=== PATIENT | female | born 1940 | race African-American/Black ===

== ENCOUNTER 2019-06-06 09:43 | Outpatient (CLI) | payer MEDICARE, SELFPAY ==
[2019-06-06 10:27] LABS: Alanine Aminotransferase 21 U/L (4-35); Alkaline Phosphatase 94 U/L (38-126); Aspartate Amino Transferase 29 U/L (14-36); Bilirubin,Total 0.3 mg/dL (0.2-1.3); Blood Urea Nitrogen 14 mg/dL (7-17); Calcium 9.5 mg/dL (8.4-10.2); Carbon Dioxide 33 mmol/L (22-30); Chloride 103 mmol/L (98-107); Cholesterol 202 mg/dL (0-200); Estimated Glomerular Filt Rate > 60; Glucose 139 mg/dL (65-105); HDL Direct 49 mg/dL; Potassium 3.7 mmol/L (3.4-5.0); Sodium 139 mmol/L (137-145); Triglycerides 62 mg/dL (<150)
[2019-06-06 10:39] LABS: LDL Cholesterol Direct 109 mg/dL
[2019-06-06 10:50] LABS: Hemoglobin A1C 8.4 % (<5.7)
[2019-06-06 10:58] LABS: Thyroid Stimulating Hormone 0.354 uIU/mL (0.465-4.680)
== END 2019-06-06 09:44 | disposition home or self-care (01) ==
PROVIDERS: PCP Emergency Medicine; Visit Provider Emergency Medicine
DX: E03.9 Hypothyroidism, unspecified (principal); E11.9 Type 2 diabetes mellitus without complications; E78.5 Hyperlipidemia, unspecified
CPT/HCPCS: 36415; 80053; 80061; 83036; 84443

== ENCOUNTER 2019-08-28 09:35 | Outpatient (CLI) | payer MEDICARE, SELFPAY ==
[2019-08-28 10:36] LABS: Alanine Aminotransferase 20 U/L (4-35); Albumin Level 3.8 g/dL (3.5-5.1); Alkaline Phosphatase 78 U/L (38-126); Aspartate Amino Transferase 28 U/L (14-36); Bilirubin,Total 0.5 mg/dL (0.2-1.3); Blood Urea Nitrogen 12 mg/dL (7-17); Calcium 9.1 mg/dL (8.4-10.2); Carbon Dioxide 31 mmol/L (22-30); Chloride 104 mmol/L (98-107); Cholesterol 204 mg/dL (0-200); Estimated Glomerular Filt Rate > 60; Glucose 131 mg/dL (65-105); HDL Direct 53 mg/dL; Potassium 3.8 mmol/L (3.4-5.0); Sodium 138 mmol/L (137-145); Triglycerides 71 mg/dL (<150)
[2019-08-28 10:47] LABS: LDL Cholesterol Direct 100 mg/dL
[2019-08-28 11:07] LABS: Thyroid Stimulating Hormone 0.202 uIU/mL (0.465-4.680)
[2019-08-28 11:26] LABS: Hemoglobin A1C 7.4 % (<5.7)
== END 2019-08-28 09:36 | disposition home or self-care (01) ==
PROVIDERS: PCP Emergency Medicine; Visit Provider Emergency Medicine
DX: E78.5 Hyperlipidemia, unspecified (principal); E11.9 Type 2 diabetes mellitus without complications
CPT/HCPCS: 36415; 80053; 80061; 83036; 84443

== ENCOUNTER 2019-09-17 13:03 | Outpatient (CLI) | payer MEDICARE, SELFPAY ==
[2019-09-17 14:20] LABS: Thyroid Stimulating Hormone 0.047 uIU/mL (0.465-4.680)
== END 2019-09-17 13:04 | disposition home or self-care (01) ==
PROVIDERS: PCP Emergency Medicine; Visit Provider Emergency Medicine
DX: E11.65 Type 2 diabetes mellitus with hyperglycemia (principal); Z79.4 Long term (current) use of insulin
CPT/HCPCS: 36415; 84443

== ENCOUNTER 2019-10-08 13:18 | Outpatient (CLI) | payer MEDICARE, SELFPAY ==
--- NOTE | ~2019-10-08 | NM_ITS ---
EXAMINATION: NM thyroid scan w uptake DATE: 10/09/2019 13:34 INDICATION: Abnormal results of thyroid function tests. COMPARISON: Thyroid scintigraphy 07/03/2013 TECHNIQUE: 0.355 mCi I-123 was administered orally. Scintigraphic images of the thyroid gland were o btained at 24 hours. Thyroid uptake was calculated by the technologist. FINDINGS: The thyroid uptake is 46% (normal 10-30%), with the right lobe measuring 35% uptake and the left 12%. Right thyroid lobe is larger than the left. There is no focal area of decreased or increased activit y to suggest hypofunctioning or hyperfunctioning nodule. IMPRESSION: 1. Persistently increased 24-hour thyroid uptake, consistent with hyperthyroidism. 2. Unchanged increased size and activity in right thyroid lobe relative to the left. Reviewed, dictated and finalized at location A. IMPRESSION: 1. Persistently increased 24-hour thyroid uptake, consistent with hyperthyroid ism. 2. Unchanged increased size and activity in right thyroid lobe relative to the left.
[2019-10-08 14:31] LABS: Free T4 Free Thyroxine 0.84 ng/mL (0.78-2.19)
[2019-10-11 06:07] LABS: Triiodothyronine T3 Free 3.2 pg/mL (2.3-4.2)
[2019-10-12 12:51] LABS: Thyroid Stimulating Immunoglob <89 % baseline (<140)
== END 2019-10-08 13:19 | disposition home or self-care (01) ==
PROVIDERS: PCP Emergency Medicine; Visit Provider Physician Assistant
DX: R94.6 Abnormal results of thyroid function studies (principal)
CPT/HCPCS: 36415; 78014; 84439; 84443; 84445; 84481; A9516

== ENCOUNTER 2019-11-11 13:13 | Outpatient (CLI) | payer MEDICARE, SELFPAY ==
[2019-11-11 14:55] LABS: Free T4 Free Thyroxine 0.67 ng/mL (0.78-2.19)
[2019-11-14 12:53] LABS: Triiodothyronine T3 Free 2.9 pg/mL (2.3-4.2)
== END 2019-11-11 13:14 | disposition home or self-care (01) ==
LOC: ANHLAB 13:17
PROVIDERS: PCP Emergency Medicine; Visit Provider Physician Assistant
DX: E05.90 Thyrotoxicosis, unspecified without thyrotoxic crisis or storm (principal)
CPT/HCPCS: 36415; 84439; 84443; 84481

== ENCOUNTER 2019-12-25 09:53 | Outpatient (CLI) | payer MEDICARE, SELFPAY ==
[2019-12-25 10:46] LABS: Alanine Aminotransferase 23 U/L (4-35); Alkaline Phosphatase 81 U/L (38-126); Anion Gap 6 mmol/L (8-16); Aspartate Amino Transferase 31 U/L (14-36); Bilirubin,Total 0.5 mg/dL (0.2-1.3); Blood Urea Nitrogen 14 mg/dL (7-17); Calcium 9.5 mg/dL (8.4-10.2); Carbon Dioxide 33 mmol/L (22-30); Chloride 103 mmol/L (98-107); Cholesterol 225 mg/dL (0-200); Estimated Glomerular Filt Rate > 60; Glucose 128 mg/dL (65-105); HDL Direct 55 mg/dL; Potassium 4.1 mmol/L (3.4-5.0); Sodium 142 mmol/L (137-145); Triglycerides 88 mg/dL (<150)
[2019-12-25 10:56] LABS: LDL Cholesterol Direct 118 mg/dL
[2019-12-25 11:05] LABS: Creatinine Urine 131.6 mg/dL
[2019-12-25 11:15] LABS: Thyroid Stimulating Hormone 0.799 uIU/mL (0.465-4.680)
[2019-12-25 11:19] LABS: MALB Creatinine Ratio < 4.6 mg/g (0-30); Microalbumin Urine Random < 6.0 mg/L (0-16.7)
[2019-12-25 11:20] LABS: Free T4 Free Thyroxine 0.72 ng/mL (0.78-2.19)
== END 2019-12-25 09:54 | disposition home or self-care (01) ==
PROVIDERS: PCP Emergency Medicine; Referring Provider Physician Assistant; Visit Provider Emergency Medicine
DX: E05.90 Thyrotoxicosis, unspecified without thyrotoxic crisis or storm (principal); E11.65 Type 2 diabetes mellitus with hyperglycemia; Z51.81 Encounter for therapeutic drug level monitoring; Z79.4 Long term (current) use of insulin; E78.5 Hyperlipidemia, unspecified
CPT/HCPCS: 36415; 80053; 80061; 82043; 84439; 84443; 84481

== ENCOUNTER 2020-08-26 09:32 | Outpatient (CLI) | payer MEDICARE, SELFPAY ==
[2020-08-26 12:58] LABS: Free T4 Free Thyroxine 0.84 ng/mL (0.78-2.19)
[2020-08-26 13:15] LABS: Total Triiodothyronine (T3) 1.79 NG/ML (0.97-1.69)
[2020-08-29 03:05] LABS: Thyroid Peroxidase Antibodies <1 IU/mL (<9)
[2020-08-29 07:26] LABS: Thyrotropin Receptor Antibody <1.00 IU/L (<=2.00)
== END 2020-08-26 09:33 | disposition home or self-care (01) ==
LOC: ANHWCLAB 09:44
PROVIDERS: PCP Emergency Medicine; Visit Provider Internal Medicine Endocrinology, Diabetes & Metabolism
DX: E05.90 Thyrotoxicosis, unspecified without thyrotoxic crisis or storm (principal); I10 Essential (primary) hypertension
CPT/HCPCS: 36415; 83519; 84439; 84443; 84480; 86376

== ENCOUNTER 2021-01-20 10:01 | Outpatient (CLI) | payer MEDICARE, SELFPAY ==
[2021-01-20 13:06] LABS: Alanine Aminotransferase 21 U/L (4-35); Albumin Level 3.8 g/dL (3.5-5.1); Alkaline Phosphatase 85 U/L (38-126); Anion Gap 9 mmol/L (8-16); Aspartate Amino Transferase 30 U/L (14-36); Bilirubin,Total 0.5 mg/dL (0.2-1.3); Blood Urea Nitrogen 22 mg/dL (7-17); Calcium 9.4 mg/dL (8.4-10.2); Carbon Dioxide 29 mmol/L (22-30); Chloride 102 mmol/L (98-107); Cholesterol 238 mg/dL (0-200); Estimated Glomerular Filt Rate 58; Glucose 168 mg/dL (65-110); HDL Direct 68 mg/dL; Sodium 140 mmol/L (137-145); Triglycerides 75 mg/dL (<150)
[2021-01-20 13:17] LABS: LDL Cholesterol Direct 124 mg/dL
[2021-01-20 13:22] LABS: Vitamin D 25 Hydroxy 30.8 ng/mL
[2021-01-20 13:23] LABS: Creatinine Urine 139.8 mg/dL
[2021-01-20 13:27] LABS: MALB Creatinine Ratio 4.3 mg/g (0-30)
== END 2021-01-20 10:02 | disposition home or self-care (01) ==
PROVIDERS: PCP Emergency Medicine; Visit Provider Internal Medicine Endocrinology, Diabetes & Metabolism
DX: E11.65 Type 2 diabetes mellitus with hyperglycemia (principal); Z51.81 Encounter for therapeutic drug level monitoring; Z79.4 Long term (current) use of insulin; I10 Essential (primary) hypertension
CPT/HCPCS: 36415; 80053; 80061; 82043; 82306

== ENCOUNTER 2021-04-29 14:26 | Outpatient (CLI) | payer MEDICARE, SELFPAY ==
[2021-04-29 17:02] LABS: Free T4 Free Thyroxine 0.95 ng/mL (0.78-2.19); Vitamin D 25 Hydroxy 35.6 ng/mL
[2021-05-03 19:49] LABS: Triiodothyronine T3 Free 3.1 pg/mL (2.3-4.2)
== END 2021-04-29 14:27 | disposition home or self-care (01) ==
LOC: ANHWCLAB 14:30
PROVIDERS: PCP Emergency Medicine; Referring Provider Nurse Practitioner Family; Visit Provider Nurse Practitioner Family
DX: E03.9 Hypothyroidism, unspecified (principal); E11.9 Type 2 diabetes mellitus without complications; E55.9 Vitamin D deficiency, unspecified; Z78.0 Asymptomatic menopausal state
CPT/HCPCS: 36415; 82306; 82607; 84439; 84443; 84481

== ENCOUNTER 2021-10-28 09:18 | Outpatient (CLI) | payer MEDICARE, SELFPAY ==
[2021-10-28 09:59] LABS: Alanine Aminotransferase 21 U/L (6-35); Albumin Level 4.4 g/dL (3.5-5.1); Alkaline Phosphatase 91 U/L (38-126); Anion Gap 15 mmol/L (8-16); Aspartate Amino Transferase 27 U/L (14-36); Bilirubin,Total 0.5 mg/dL (0.2-1.3); Blood Urea Nitrogen 13 mg/dL (7-17); Calcium 9.4 mg/dL (8.4-10.2); Carbon Dioxide 29 mmol/L (22-30); Chloride 98 mmol/L (98-107); Cholesterol 260 mg/dL (0-200); Estimated Glomerular Filt Rate 57; Glucose 172 mg/dL (65-110); HDL Direct 66 mg/dL; Potassium 3.8 mmol/L (3.4-5.0); Sodium 142 mmol/L (137-145); Triglycerides 85 mg/dL (<150)
[2021-10-28 10:10] LABS: LDL Cholesterol Direct 128 mg/dL
[2021-10-28 10:32] LABS: Creatinine Urine 190.5 mg/dL
[2021-10-28 10:36] LABS: MALB Creatinine Ratio 6.8 mg/g (0-30); Microalbumin Urine Random 12.9 mg/L (0-16.7)
== END 2021-10-28 09:19 | disposition home or self-care (01) ==
LOC: ANHLAB 09:21
PROVIDERS: PCP Emergency Medicine; Visit Provider Emergency Medicine
DX: E11.9 Type 2 diabetes mellitus without complications (principal); E05.90 Thyrotoxicosis, unspecified without thyrotoxic crisis or storm; I10 Essential (primary) hypertension
CPT/HCPCS: 36415; 80053; 80061; 82043; 83036; 84443

== ENCOUNTER 2022-02-16 09:13 | Inpatient (IN) | payer MEDICARE, SELFPAY ==
[2022-02-16] VITALS (17 sets, daily range): BP systolic 126–156; BP diastolic 47–88; PULSE 61–118; RESP 11–21; TEMP 36.5; O2SAT 96–100; BMI 29.0
--- NOTE | ~2022-02-16 | XR_ITS ---
EXAMINATION: XR chest 2V DATE: 02/16/2022 09:45 INDICATION: Heart palpitations TECHNIQUE: AP and lateral views of the chest are obtained. COMPARISON: 06/17/2013 FINDINGS: The lungs are free of acute opacities. No pleural effusion or pneumothorax. The cardiomedia stinal silhouette is normal. There is moderate thoracic spondylosis. IMPRESSION: 1. No acute cardiopulmonary abnormality. Reviewed, dictated and finalized at location B. ERY CHECKER
--- NOTE | ~2022-02-16 | US_ITS ---
EXAMINATION: US venous doppler [facility] DATE: 02/16/2022 22:38 INDICATION: Elevated D-dimer , lower limb pain and swelling. TECHNIQUE: Grayscale images without and with compression and Doppler images of the bilateral lower ex tremity veins were obtained. COMPARISON: None FINDINGS: The right common femoral vein, profunda (deep) femoral vein, femoral vein, popliteal vein, peroneal v ein, posterior tibial veins, gastrocnemius vein, and greater saphenous vein are patent. The left common femoral vein, profunda femoral vein, femoral vein, popliteal vein, peroneal vein, pos terior tibial veins, gastrocnemius vein, and greater saphenous vein are patent. IMPRESSION: 1. Patent bilateral lower extremity veins. No evidence of deep venous thrombosis. Reviewed, dictated and finalized at location K. TAL MARKETER IMPRESSION: 1. Patent bilateral lower extremity veins. No evidence of deep venous thrombos is.
--- NOTE | ~2022-02-16 | CT_ITS ---
EXAMINATION: CTA chest PE protocol DATE: 02/16/2022 12:26 INDICATION: Tachypnea TECHNIQUE: Computed tomography angiography (CTA) of the chest was performed with 100 mL Omnipaque-350 intravenous contrast timed to evaluate the pulmonary arteries. Coronal maximum intensity projection 3D-reconstructions were created by the technologist. The dose-length product (DLP) was 364.61 mGy-cm. Automated exposure control and iterative reconstruction technique were employed. COMPARISON: None. FINDINGS: The pulmonary arteries are well-opacified. There are acute filling defects in segmental and subsegmental pulmonary arteries of the right lower lobe, right middle lobe, right upper lobe, and le ft lower lobe. There is mild dependent atelectasis. No pleural effusion or pneumothorax. No pathologi joanne enlarged thoracic lymph nodes are identified. The heart size is normal. There is a 1.7 cm nodul e of the right thyroid lobe. There is moderate thoracic spondylosis low-density masses of the adrenal glands are consistent with adenomas.. IMPRESSION: 1. Acute pulmonary emboli in the right lung and left lower lobe. These findings were discussed with Maynor Zuñiga MD in the Emergency Department at 1239 hours on 02/16/2022. 2. Right thyroid nodule. Nonemergent thyroid ultrasound is recommended for risk stratification. Reviewed, dictated and finalized at location B. RUMENTATION INSTRUCTOR IMPRESSION: 1. Acute pulmonary emboli in the right lung and left lower lobe. These findings were discussed with Dr. Kia Zuñiga MD in the Emergency Department at 12 39 hours on 02/16/2022. 2. Right thyroid nodule. Nonemergent thyroid ultrasound is recommended for risk stratification.
--- NOTE | 2022-02-16 09:22 | ECG_ITS ---
Measurements Intervals [place] Rate: 107 P: 40 MN: 132 QRS: -46 QRSD: 90 T: 64 QT: 330 QTc: 441 Interpretive Statements SINUS TACHYCARDIA INFERIOR MYOCARDIAL INFARCTION , PROBABLY OLD [40+ ms Q WAVE AND/OR ST/T ABNORMALITY IN II/aVF] NO PREVIOUS ECG AVAILABLE FOR COMPARISON Electronically Signed On 02-16-2022 13:22:57 [employer]OL BU[employer] by Ousmane Prasad M.D.
[2022-02-16 09:44] LABS: INR 1.1; Prothrombin Time 13.6 Seconds (11.1-14.7)
[2022-02-16 09:45] LABS: Basophils Percent Auto 0.3 % (0.2-1.2); Eosinophils Absolute Auto 0.1 K/mm3 (0-0.3); Hematocrit 45.4 % (37.0-47.0); Hemoglobin 15.6 g/dL (12.0-15.0); Immature Granulocyte Absolute 0.01 K/mm3 (0.00-0.031); Immature Granulocyte Percent A 0.2 % (0-0.5); Lymphocytes Absolute Auto 1.62 K/mm3 (0.9-3.2); Lymphocytes Percent Auto 26.1 % (18.3-44.2); Mean Corpuscular HGB Conc 34.4 g/dl (32-36); Mean Corpuscular Hemoglobin 29.6 pg (26-34); Mean Corpuscular Volume 86.1 fl (80-100); Mean Platelet Volume 9.9 fl (7.4-10.4); Monocytes Absolute Auto 0.6 K/mm3 (0.1-0.6); Monocytes Percent Auto 8.9 % (2.6-8.5); Neutrophils Absolute Auto 3.9 K/mm3 (1.3-6.7); Neutrophils Percent Auto 63.5 % (45.5-73.1); Partial Thromboplastin Time 22.1 SECONDS (22.3-36.8); Platelet Count Result 259 k/mm3 (150-375); Red Blood Count 5.27 M/mm3 (4.2-5.4); Red Cell Distribution Width 12.4 % (11.5-14.5); White Blood Count 6.2 K/mm3 (4.5-10.0)
[2022-02-16 09:46] LABS: Alanine Aminotransferase 24 U/L (6-35); Albumin Level 4.3 g/dL (3.5-5.1); Alkaline Phosphatase 104 U/L (38-126); Anion Gap 11 mmol/L (8-16); Aspartate Amino Transferase 29 U/L (14-36); Bilirubin,Total 0.7 mg/dL (0.2-1.3); Blood Urea Nitrogen 19 mg/dL (7-17); Carbon Dioxide 27 mmol/L (22-30); Chloride 100 mmol/L (98-107); Estimated CRCL calculation 38 ml/min; Estimated Glomerular Filt Rate 57; Glucose 260 mg/dL (65-110); Lipase 93 U/L (23-300); Potassium 3.2 mmol/L (3.4-5.0); Sodium 138 mmol/L (137-145)
[2022-02-16 09:58] LABS: Troponin I < 0.012 ng/mL (0.000-0.034)
--- NOTE | 2022-02-16 10:21 | ED.ARRPALP ---
HPI - Arrhythmia/Palpitations General Chief Complaint: Arrhythmia/Palpitations Stated Complaint: dizzy and heart palpitations Time Seen by Provider: 02/16/22 09:23 Source: patient, RN notes reviewed and old records reviewed Mode of arrival: ambulatory Limitations: no limitations History of Present Illness HPI narrative: This is an 82 year old female who presents for evaluation of heart racing. PAtient states last night she had some dizziness, and this morning her dizziness seemed worse. She describes her dizziness as feeling off balance, and she thinks it occurs when she stands up. She also reports she woke up from her sleep at 3 am with feeling that her heart was racing. She reports associated thumping in her chest and this lasted until she got to ER. She reports feeling of gas in her left lower chest and upper abdomen. She denies dizziness now. She denies fever, cough, sob, nausea, vomiting or diarrhea. She denies history of arrhythmia. Related Data Home Medications Medication Instructions Recorded Confirmed cetirizine 10 mg capsule (Zyrtec) 10 mg PO DAILY PRN Allergy Symptoms 05/29/20 02/16/22 cholecalciferol (vitamin D3) 50 50 mcg PO DAILY 02/16/22 02/16/22 mcg (2,000 unit) capsule lisinopril 20 1 tablet PO BID 02/16/22 02/16/22 mg-hydrochlorothiazide 12.5 mg tablet Allergies Allergy/AdvReac Type Severity Reaction Status Date / Time No Known Allergies Allergy Verified 01/26/22 14:32 Review of Systems Constitutional: Constitutional: Denies weakness Cardiovascular: Cardiovascular: Denies syncope, Reports rapid heart rate, Denies irregular heart rhythm, Reports leg edema and Denies dyspnea Respiratory: Respiratory: Denies chest congestion, Denies hemoptysis, Denies excessive phlegm production and Denies dyspnea Gastrointestinal: Gastrointestinal: Denies abdominal pain, Denies hematochezia, Denies diarrhea and Denies vomiting Genitourinary: Genitourinary: Denies hematuria and Denies dysuria Musculoskeletal: Musculoskeletal: Denies joint swelling, Denies loss of height and Denies muscle weakness Neurologic: Denies syncope, Denies focal weakness and Denies weakness PMFSH Past Medical History Medical History Body mass index [BMI] 25.0-25.9, adult (04/21/15) Body mass index [BMI] 26.0-26.9, adult (08/15/16) Body mass index [BMI] 27.0-27.9, adult (11/17/16) Body mass index [BMI] 28.0-28.9, adult (10/11/17) Body mass index [BMI] 29.0-29.9, adult (05/28/18) Chronic pain of both knees Chronic right shoulder pain Gastro-esophageal reflux disease without esophagitis 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 Major depressive disorder, single episode, unspecified Nontoxic goiter, unspecified Other chronic pain Pain in left knee Primary osteoarthritis of both knees Vitamin D deficiency Surgical History Surgical History H/O cataract extraction S/P ORIF (open reduction internal fixation) fracture left forearm plate Family History Family History Mother Family history of blood dyscrasia Family history of anemia Family history of arthritis Diabetes mellitus, Onset Age: 83 Family history of malignant neoplasm, Onset Age: 83 Father Family history of lung disease Family history of lung cancer, Onset Age: 70 Sibling Family history of diabetes mellitus in first degree relative Social History Social History (Updated 02/16/22 @ 17:42 by Cuca Campbell NP) Social History: The patient has no children and is single. She is Retired from [employer]. She does not have a durable power staff attorney for healthcare. Code status full code Smoking packs per day: 5 Smoking cigarettes per day: 100.0 Years smoked: 15 Smoking pack-years: 75.00 Smoking status: Former smoker Tobacco type: cigarettes Seco
[2022-02-16] MEDS: ASPIRIN 81 MG CHEWABLE TABLET 324 MG PO (10:36)
[2022-02-16] MEDS: POTASSIUM CHLORIDE 20 MEQ TABLET 40 MEQ PO (10:37)
[2022-02-16] MEDS: SODIUM CHLORIDE 0.9% IV 1,000 ML 999 ML IV CONT (10:37)
--- NOTE | 2022-02-16 11:10 | PC.NURSE ---
Patient report given to MARIA ALEJANDRA Vaughn. All questions answered and care of patient transferred.
[2022-02-16 11:43] LABS: Influenza A QL RT-PCR Negative (Negative); Influenza B QL RT-PCR Negative (Negative); SARS-CoV-2 RNA PCR Negative
[2022-02-16 12:00] LABS: Magnesium 1.8 mg/dL (1.6-2.3)
[2022-02-16 12:01] LABS: D Dimer 3.06 ug/mL (<0.48)
[2022-02-16] MEDS: ENOXAPARIN 100 MG/ML SYRINGE 85 MG SUB-Q ×2 (13:09→20:55)
[2022-02-16 13:23] LABS: Troponin I < 0.012 ng/mL (0.000-0.034)
--- NOTE | 2022-02-16 13:37 | PM.IMHP ---
H&P: HPI History of Present Illness Date/Time: 02/16/22 13:37 Chief Complaint: Arrhythmia-palpitation Narrative: This is an 82-year-old female patient who has no prior history of having a PE. She has not had any recent travel. She has not had any recent surgery or injury. She lives a sedentary lifestyle. She was brought in for evaluation of heart racing. Last night she had some dizziness. However this morning her dizziness got worse. She felt like she was off balance when she stands up. She woke up around 3:00 a.m. feeling her heart race. She denied any fever chills no nausea vomiting or diarrhea. She has no prior history of any arrhythmia. She does live home alone. EKG was read as sinus tachycardia. Her D-dimer was 3.06. Potassium was 3.2. Her Accu-Chek was 254. The patient had been eating lunch while I was talking to her. Her last A1c was 8.0 on 10/28/2021. Both troponins were nonreactive. Influenza A/B and COVID are all negative. CTA was read as the followin. Acute pulmonary emboli in the right lung and left lower lobe. These findings were discussed with Dr. Kia Zuñiga MD in the Emergency Department at 1239 hours on 02/16/2022.? 2. Right thyroid nodule. Nonemergent thyroid ultrasound is recommended for risk stratification. The patient is being admitted to observation status on 02/16/2022. Review of Systems Review of Systems: See HPI All systems reviewed & are unremarkable except as noted in HPI and below Constitutional: Constitutional: Reports as per HPI and Reports no additional constitutional complaints Eyes: Eyes: Reports as per HPI and Reports no additional eye complaints ENT: Reports system reviewed and no additional complaints, except as documented and Reports Normal hearing present Cardiovascular: Cardiovascular: Reports no additional cardiovascular complaints Respiratory: Respiratory: Reports no additional respiratory complaints and Reports no additional respiratory complaints Gastrointestinal: Gastrointestinal: Reports as per HPI and Reports no additional gastrointestinal complaints Musculoskeletal: Musculoskeletal: Reports no additional musculoskeletal complaints Integumentary/Breasts: Skin/Breast: Reports system reviewed and no additional complaints, except as docu and Reports as per HPI Neurologic: Reports system reviewed and no additional complaints, except as documented, Reports as per HPI and Reports Normal hearing present Psychiatric: Psychiatric: Reports no additional psychiatric complaints and Reports as per HPI Endocrine: Endocrine: Reports no additional endocrine complaints Hematologic/Lymphatic: Hematologic/Lymphatic: Reports no additional hematologic/lymphatic complaints Allergic/Immunologic: Allergic/Immunologic: Reports no additional allergic/immunologic complaints [facility] Past Medical History Medical History Body mass index [BMI] 25.0-25.9, adult (04/21/15) Body mass index [BMI] 26.0-26.9, adult (08/15/16) Body mass index [BMI] 27.0-27.9, adult (11/17/16) Body mass index [BMI] 28.0-28.9, adult (10/11/17) Body mass index [BMI] 29.0-29.9, adult (05/28/18) Chronic pain of both knees Chronic right shoulder pain Gastro-esophageal reflux disease without esophagitis 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
--- NOTE | 2022-02-16 14:43 | PC.NURSE ---
This patient, Camila Valadez, was admitted to [facility] Room 322-01. Patient/family oriented to hospital policies and general routines including ID bracelet, bed and alarms, visiting hours, pain management, procedures, bathroom and other care routines, personal items, smoking policy, room service/diet, and visiting hours. Information on how to activate the Rapid Response Team has been discussed. Patient/Family are encouraged to report perceived risks to care and to ask questions if they do not understand what they are told or what they should do.
[2022-02-16 16:11] LABS: Troponin I < 0.012 ng/mL (0.000-0.034)
[2022-02-16 16:52] LABS: Glucose Point of Care 254 mg/dl (65-105)
[2022-02-16] MEDS: INSULIN HUMAN NPH (*BKC) 100 UNITS/ML 8 UNITS SUB-Q (18:12)
[2022-02-16] MEDS: lisinopriL 20 MG TABLET PO (20:52)
[2022-02-16] MEDS: hydroCHLOROthiazide 12.5 MG CAPSULE PO (20:52)
[2022-02-16 21:24] LABS: Glucose Point of Care 177 mg/dl (65-105)
[2022-02-17] VITALS (10 sets, daily range): BP systolic 125–137; BP diastolic 58–63; PULSE 53–94; RESP 18–20; TEMP 36.2–36.7; O2SAT 99–100
--- NOTE | 2022-02-17 | ECHO_ITS ---
Patient Info Name: Camila Valadez Age: 82 years : 1940 Gender: Female Ht: 67 in Wt: 184 lbs BSA: 2.01 m2 HR: 64 bpm BP: 127 / 58 mmHg Heart Rhythm: Sinus Rhythm Technical Quality: Good Exam Date: 02/17/2022 11:57 AM Exam Location: [facility] Patient Status: Inpatient Admit Date: 02/16/2022 Staff Ordering Physician: Cuca Campbell NP Burn Crew Member: Ailyn Renteria RDCS Attending Provider: Jamey Eagle MD Referring Physician: Adrian ESPANA; Exam Type: CA echo doppler color flow Study Info Indications - PULMONARY EMBOLISM Complete two-dimensional, color flow and Doppler transthoracic echocardiogram is performed. Summary 1. Complete two-dimensional, color flow and Doppler transthoracic echocardiogram is performed. 2. Left ventricular chamber dimension is normal. 3. Left ventricular systolic function is normal, estimated at 65-70%. 4. There is mildly increased left ventricular wall thickness. 5. The left ventricular diastolic function is grade I diastolic dysfunction. 6. Global longitudinal strain is normal at -18 %. 7. Right ventricular chamber dimension is mildly enlarged. 8. Right ventricular systolic function is lower limits of normal. TAPSE 1.8. 9. There is no aortic valve stenosis. 10. There is trace mitral valve regurgitation. 11. There is trace tricuspid valve regurgitation. 12. Mild pulmonary hypertension, estimated pulmonary arterial systolic pressure is 37 mmHg. Left Ventricle Left ventricular chamber dimension is normal. Left ventricular systolic function is normal, estimated at 65-70%. There is mildly increased left ventricular wall thickness. The left ventricular diastolic function is grade I diastolic dysfunction. Global longitudinal strain is normal at -18 %. Right Ventricle Right ventricular chamber dimension is mildly enlarged. Right ventricular systolic function is lower limits of normal. TAPSE 1.8. Left Atria Left atrial chamber dimension is normal. Right Atria Right atrial chamber dimension is normal. Aortic Valve The aortic valve is trileaflet. There is mild aortic valve sclerosis. There is no aortic valve stenosis. There is trace aortic valve regurgitation. Pulmonic Valve The pulmonic valve is not well visualized. Mitral Valve The mitral valve has thickened leaflets. There is trace mitral valve regurgitation. The mitral valve annulus is mildly calcified. Tricuspid Valve The tricuspid valve leaflets are normal. There is trace tricuspid valve regurgitation. Mild pulmonary hypertension, estimated pulmonary arterial systolic pressure is 37 mmHg. No tricuspid valve vegetation visualized. Pericardium/Pleural The pericardium appears normal. There is small pericardial effusion. Inferior Vena Cava Normal inferior vena cava with >50% collapse upon inspiration consistent with normal right atrial pressure, 5 mmHg. Aorta The aortic root size at the sinus of Valsalva is normal. The prox ascending aorta size is normal. There is mild aortic atherosclerosis. Left Ventricular Outflow Tract Name Value Normal LVOT 2D LVOT Diameter 2.0 cm LVOT Doppler
[2022-02-17 06:43] LABS: Basophils Percent Auto 0.5 % (0.2-1.2); Eosinophils Absolute Auto 0.1 K/mm3 (0-0.3); Eosinophils Percent Auto 3.4 % (0-4.4); Hematocrit 42.2 % (37.0-47.0); Lymphocytes Absolute Auto 2.01 K/mm3 (0.9-3.2); Lymphocytes Percent Auto 48.8 % (18.3-44.2); Mean Corpuscular HGB Conc 33.2 g/dl (32-36); Mean Corpuscular Hemoglobin 29.7 pg (26-34); Mean Corpuscular Volume 89.4 fl (80-100); Mean Platelet Volume 9.7 fl (7.4-10.4); Monocytes Absolute Auto 0.4 K/mm3 (0.1-0.6); Monocytes Percent Auto 10.2 % (2.6-8.5); Neutrophils Absolute Auto 1.5 K/mm3 (1.3-6.7); Neutrophils Percent Auto 37.1 % (45.5-73.1); Platelet Count Result 208 k/mm3 (150-375); Red Blood Count 4.72 M/mm3 (4.2-5.4); Red Cell Distribution Width 12.5 % (11.5-14.5); White Blood Count 4.1 K/mm3 (4.5-10.0)
[2022-02-17 06:52] LABS: Alanine Aminotransferase 20 U/L (6-35); Albumin Level 3.5 g/dL (3.5-5.1); Alkaline Phosphatase 83 U/L (38-126); Anion Gap 7 mmol/L (8-16); Aspartate Amino Transferase 25 U/L (14-36); Bilirubin,Total 0.6 mg/dL (0.2-1.3); Blood Urea Nitrogen 15 mg/dL (7-17); Calcium 8.4 mg/dL (8.4-10.2); Carbon Dioxide 27 mmol/L (22-30); Chloride 105 mmol/L (98-107); Estimated CRCL calculation 41 ml/min; Estimated Glomerular Filt Rate > 60; Glucose 153 mg/dL (65-110); Magnesium 2.1 mg/dL (1.6-2.3); Potassium 3.5 mmol/L (3.4-5.0); Sodium 139 mmol/L (137-145)
[2022-02-17 07:36] LABS: Thyroid Stimulating Hormone Reflex 0.068 uIU/mL (0.465-4.68)
[2022-02-17 08:05] LABS: Glucose Point of Care 156 mg/dl (65-105)
[2022-02-17 09:04] LABS: Free T4 Free Thyroxine Reflex 1.55 ng/dL (0.78-2.19)
[2022-02-17] MEDS: CHOLECALCIFEROL 1,000 UNITS TABLET 2000 UNITS PO (09:30)
[2022-02-17] MEDS: lisinopriL 20 MG TABLET PO ×2 (09:30→23:48)
[2022-02-17] MEDS: POTASSIUM CHLORIDE 10 MEQ TABLET.ER BY MOUTH ×2 (09:30→17:42)
[2022-02-17] MEDS: ENOXAPARIN 100 MG/ML SYRINGE 85 MG SUB-Q (09:30)
[2022-02-17] MEDS: methiMAzole 5 MG TAB BY MOUTH (09:30)
[2022-02-17] MEDS: hydroCHLOROthiazide 12.5 MG CAPSULE PO ×2 (09:30→23:48)
[2022-02-17 10:32] LABS: Total Triiodothyronine (T3) 1.41 NG/ML (0.97-1.69)
[2022-02-17 12:00] LABS: Glucose Point of Care 234 mg/dl (65-105)
--- NOTE | 2022-02-17 13:07 | P.PNIM_ITS ---
Progress Note: A&P Assessment and Plan (1) Pulmonary emboli: Code(s): I26.99 - Other pulmonary embolism without acute cor pulmonale Status: Acute Assessment and Plan: -the patient is on subcu Lovenox today. -may consider transitioning to Xarelto or Eliquis tomorrow depending on what her insurance will cover. -the patient is not in any distress and is on room air. -check venous Dopplers -an echo has been ordered as well --the patient has a sedentary lifestyle. -she has not had any recent injuries or surgeries or travel.. (2) Hyperthyroidism: Code(s): E05.90 - Thyrotoxicosis, unspecified without thyrotoxic crisis or storm Status: Acute Assessment and Plan: -as the patient about her Tapazole and she stated that her doctor was supposed to reorder her this medication but she has not received it. -I will check her thyroid level. (3) Type 2 diabetes mellitus with hyperglycemia, with long-term current use of insulin: Code(s): E11.65 - Type 2 diabetes mellitus with hyperglycemia; Z79.4 - academic program specialist (current) use of insulin Status: Acute Assessment and Plan: -sliding scale insulin with Accu-Cheks AC and HS and hypoglycemic protocol -her A1c was 8.0 on 10/28/2021. Hold NPH while on sliding scale and (4) HTN (hypertension): Qualifiers: Hypertension type: essential hypertension Qualified Code(s): I10 - Essential (primary) hypertension Code(s): I10 - Essential (primary) hypertension Status: Acute Assessment and Plan: -p.r.n. hydralazine with parameters -the patient is on lisinopril with hydrochlorothiazide at home and it is non formulary here. Perhaps we can just give however the lisinopril. -will need to continue with her supplemental potassium as her potassium was slightly low. Subjective Date/time seen: 02/17/22 13:07 No complaints Exam Const: General: cooperative, healthy appearing, comfortable, no acute distress, well developed, awake, Physically active, average body habitus and well nourished Nutritional Appearance: average body habitus and well nourished Orientation/consciousness: oriented to person, oriented to place, oriented to time and patient oriented x3 Limitations: no limitations HENMT: Head: normal to inspection, No palpable skull fracture present, normocephalic and atraumatic Ears: hearing grossly normal bilaterally and external ears normal Face/Nose/Sinus: Normal external nose present and Normal nares present Eyes: General: appearance normal, both eyes and all related structures Alignment and Position: alignment normal Periorbital: periorbital findings normal Eyelids: eyelids normal Sclera: sclerae normal Pupils: Equal, round and reactive pupils present EOM: EOMs intact bilaterally Neck: Neck: normal visual inspection, full ROM, no lymphadenopathy, trachea midline and supple Chest: Chest palpation & inspection: normal inspection of the chest Resp: Effort & Inspection: normal respiratory effort Auscultation: clear to auscultation bilaterally Cardio: Palpation: normal PMI Rate: regular rate Rhythm: regular rhythm Heart sounds: S1 normal heart sound present and S2 normal heart sound present Peripheral pulses: Peripheral pulses 2+ throughout GI: Inspection: normal to inspection Auscultation: normal bowel sounds Rectal Exam: deferred : General: Yes no CVA tenderness Back/Spine/Pelvis: Back: no CVA tenderness Cervical Spine: cervical ROM normal Thoracic/Lumbar Spine: thoracic and lumbar spine normal to i
[2022-02-17 16:53] LABS: Glucose Point of Care 176 mg/dl (65-105)
[2022-02-17] MEDS: INSULIN HUMAN NPH (*BKC) 100 UNITS/ML 8 UNITS SUB-Q (17:43)
[2022-02-17] MEDS: APIXABAN 5 MG TABLET 10 MG PO (23:48)
[2022-02-18] VITALS (11 sets, daily range): BP systolic 129–142; BP diastolic 56–67; PULSE 54–82; RESP 14–20; TEMP 36.5–36.8; O2SAT 98–100
[2022-02-18 07:46] LABS: Glucose Point of Care 176 mg/dl (65-105)
[2022-02-18] MEDS: CHOLECALCIFEROL 1,000 UNITS TABLET 2000 UNITS PO (08:08)
[2022-02-18] MEDS: methiMAzole 5 MG TAB BY MOUTH (08:08)
[2022-02-18] MEDS: hydroCHLOROthiazide 12.5 MG CAPSULE PO ×2 (08:08→20:50)
[2022-02-18] MEDS: lisinopriL 20 MG TABLET PO ×2 (08:08→20:50)
[2022-02-18] MEDS: APIXABAN 5 MG TABLET 10 MG PO ×2 (08:08→20:50)
[2022-02-18] MEDS: POTASSIUM CHLORIDE 10 MEQ TABLET.ER BY MOUTH ×2 (08:09→17:07)
[2022-02-18 11:58] LABS: Glucose Point of Care 177 mg/dl (65-105)
--- NOTE | 2022-02-18 12:19 | WPDNEURCNPN ---
Consult date: 02/18/22 HPI: Camila Valadez is a 82 year old female admitted to the hospital through the emergency room for the complaints of palpitation with dizziness in the emergency room patient reported that she had dizziness night before which was gradually getting worse and she explained it was a sensation of off balance and occurs when she stands up she did complain of associated thumping in her chest which lasted up until she came to the emergency room she gave no history of any other associated symptomatology. Her home medication included only lisinopril 20 mg twice a day vitamin D3 and cetirizine 10 mg daily, is not allergic to any medication, she has history of 75 smoking pack years with 15 years smoked but former smoker and not alcohol intake initial examination in the emergency room was normal vital signs were normal with blood pressure 155/59 routine labs were normal with glucose of 260 and GFR of 57 testing for influenza AB and stars negative chest x-ray negative but CTA of the chest documented acute pulmonary emboli in the right lung and left lower lobe in addition to right thyroid nodule EKG was without atrial fibrillation and echocardiogram reveals only trace mitral valve regurgitation and tricuspid valve regurgitation and pulmonary hypertension, patient has already been started on apixaban 15 mg q.12 hours. 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 Major depressive disorder, single episode, unspecified Nontoxic goiter, unspecified Other chronic pain Pain in left knee Primary osteoarthritis of both knees Vitamin D deficiency Surgical History Surgical History H/O cataract extraction S/P ORIF (open reduction internal fixation) fracture left forearm plate Family History Family History Mother Family history of blood dyscrasia Family history of anemia Family history of arthritis Diabetes mellitus, Onset Age: 83 Family history of malignant neoplasm, Onset Age: 83 Father Family history of lung disease Family history of lung cancer, Onset Age: 70 Sibling Family history of diabetes mellitus in first degree relative Social History Social History (Updated 02/16/22 @ 17:42 by Cuca Campbell NP) Social History: The patient has no children and is single. She is Retired from [employer]. She does not have a durable power corporate associate attorney for healthcare. Code status full code Smoking packs per day: 5 Smoking cigarettes per day: 100.0 Years smoked: 15 Smoking pack-years: 75.00 Smoking status: Former smoker Tobacco type: cigarettes Second hand tobacco smoke exposure: Yes Alcohol intake: never Substance use: never Substance use type: does not use Lack of Transportation: No Lack of Food: Never True Current Housing: I Have Housing Concerned About Future Housing: No Difficulty Paying Gas/Electric Bills: No Difficulty Paying for Meds: No Currently Unemployed: No Education: High School Diploma/GED Difficulty w/ Childcare or Family Care: No Spiritual care concerns: No Meds Home Medications and Allergies Home Medications Medication Instructions Recorded Confirmed Type cetirizine 10 mg capsule (Zyrtec) 10 mg PO DAILY PRN Allergy Symptoms 05/29/20 02/16/22 History insulin NPH isoph U-100 human 100 See Rx Instructions subcut DAILY 03/23/21 02/16/22 Rx unit/mL subcutaneous suspension 90 days #20
--- NOTE | 2022-02-18 13:31 | PM.IMPN ---
Progress Note: A&P Assessment and Plan (1) Pulmonary emboli: Code(s): I26.99 - Other pulmonary embolism without acute cor pulmonale Status: Acute Assessment and Plan: -the patient is on subcu Lovenox today. -may consider transitioning to Xarelto or Eliquis tomorrow depending on what her insurance will cover. -the patient is not in any distress and is on room air. -check venous Dopplers -an echo has been ordered as well --the patient has a sedentary lifestyle. -she has not had any recent injuries or surgeries or travel.. (2) Hyperthyroidism: Code(s): E05.90 - Thyrotoxicosis, unspecified without thyrotoxic crisis or storm Status: Acute Assessment and Plan: -as the patient about her Tapazole and she stated that her doctor was supposed to reorder her this medication but she has not received it. -I will check her thyroid level. 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 Hold NPH while on sliding scale and (4) HTN (hypertension): Qualifiers: Hypertension type: essential hypertension Qualified Code(s): I10 - Essential (primary) hypertension Code(s): I10 - Essential (primary) hypertension Status: Acute Assessment and Plan: -p.r.n. hydralazine with parameters -the patient is on lisinopril with hydrochlorothiazide at home and it is non formulary here. Perhaps we can just give however the lisinopril. -will need to continue with her supplemental potassium as her potassium was slightly low. Subjective Date/time seen: 02/18/22 13:31 Doing well Exam Const: General: cooperative, healthy appearing, comfortable, no acute distress, well developed, awake, Physically active, average body habitus and well nourished Nutritional Appearance: average body habitus and well nourished Orientation/consciousness: oriented to person, oriented to place, oriented to time and patient oriented x3 Limitations: no limitations HENMT: Head: normal to inspection, No palpable skull fracture present, normocephalic and atraumatic Ears: hearing grossly normal bilaterally and external ears normal Face/Nose/Sinus: Normal external nose present and Normal nares present Eyes: General: appearance normal, both eyes and all related structures Alignment and Position: alignment normal Periorbital: periorbital findings normal Eyelids: eyelids normal Sclera: sclerae normal Pupils: Equal, round and reactive pupils present EOM: EOMs intact bilaterally Neck: Neck: normal visual inspection, full ROM, no lymphadenopathy, trachea midline and supple Chest: Chest palpation & inspection: normal inspection of the chest Resp: Effort & Inspection: normal respiratory effort Auscultation: clear to auscultation bilaterally Cardio: Palpation: normal PMI Rate: regular rate Rhythm: regular rhythm Heart sounds: S1 normal heart sound present and S2 normal heart sound present Peripheral pulses: Peripheral pulses 2+ throughout GI: Inspection: normal to inspection Auscultation: normal bowel sounds Rectal Exam: deferred : General: Yes no CVA tenderness Back/Spine/Pelvis: Back: no CVA tenderness Cervical Spine: cervical ROM normal Thoracic/Lumbar Spine: thoracic and lumbar spine normal to inspection Pelvis: no pain with anterior-posterior compression Skin: General skin exam: normal color Lesions: no lesions Rashes: no rashes Trauma: no lacerations or abrasions Wounds: no wounds Hair: normal Nails: normal Neuro: General: oriented to person, oriented to place, oriented to time and patient oriented x3 Cranial nerves: Yes Equal, round and reactive pupils present and Yes Normal hearing present Cognition (Neuro)
--- NOTE | 2022-02-18 14:23 | WPDNEURCNPN ---
Assessment and Plan Assessment and plan (1) Orthostatic dizziness: Code(s): R42 - Dizziness and giddiness Status: Acute (2) Autonomic neuropathy: Code(s): G90.9 - Disorder of the autonomic nervous system, unspecified Status: Acute Plan 1 acute pulmonary emboli in the right lung and left lower lobe by CTA of the chest 2. Complaints of orthostatic dizziness once the general condition is stable we evaluate her for neuropathy secondary to underlying diabetes mellitus with autonomic involvement that is neuropathy Consult date: 02/18/22 HPI: Camila Valadez is a 82 year old female [facility] Past Medical History Medical History Body mass index [BMI] 25.0-25.9, adult (04/21/15) Body mass index [BMI] 26.0-26.9, adult (08/15/16) Body mass index [BMI] 27.0-27.9, adult (11/17/16) Body mass index [BMI] 28.0-28.9, adult (10/11/17) Body mass index [BMI] 29.0-29.9, adult (05/28/18) Chronic pain of both knees Chronic right shoulder pain Gastro-esophageal reflux disease without esophagitis HTN (hypertension) vermin exterminator (current) use of insulin Major depressive disorder, single episode, unspecified Nontoxic goiter, unspecified Other chronic pain Pain in left knee Primary osteoarthritis of both knees Vitamin D deficiency Surgical History Surgical History H/O cataract extraction S/P ORIF (open reduction internal fixation) fracture left forearm plate Family History Family History Mother Family history of blood dyscrasia Family history of anemia Family history of arthritis Diabetes mellitus, Onset Age: 83 Family history of malignant neoplasm, Onset Age: 83 Father Family history of lung disease Family history of lung cancer, Onset Age: 70 Sibling Family history of diabetes mellitus in first degree relative Social History Social History (Updated 02/16/22 @ 17:42 by Cuca Campbell NP) Social History: The patient has no children and is single. She is Retired from [employer]. She does not have a durable power collections attorney for healthcare. Code status full code Smoking packs per day: 5 Smoking cigarettes per day: 100.0 Years smoked: 15 Smoking pack-years: 75.00 Smoking status: Former smoker Tobacco type: cigarettes Second hand tobacco smoke exposure: Yes Alcohol intake: never Substance use: never Substance use type: does not use Lack of Transportation: No Lack of Food: Never True Current Housing: I Have Housing Concerned About Future Housing: No Difficulty Paying Gas/Electric Bills: No Difficulty Paying for Meds: No Currently Unemployed: No Education: High School Diploma/GED Difficulty w/ Childcare or Family Care: No Spiritual care concerns: No Meds Home Medications and Allergies Home Medications Medication Instructions Recorded Confirmed Type cetirizine 10 mg capsule (Zyrtec) 10 mg PO DAILY PRN Allergy Symptoms 05/29/20 02/16/22 History insulin NPH isoph U-100 human 100 See Rx Instructions subcut DAILY 03/23/21 02/16/22 Rx unit/mL subcutaneous suspension 90 days #20 mL (Humulin N NPH U-100 Insulin (isophane susp)) methimazole 5 mg tablet See Rx Instructions .Route 09/21/21 02/16/22 Rx .COMPLEX #90 tabs potassium chloride 10 mEq See Rx Instructions .Route 12/17/21 02/16/22 Rx tablet,extended release .COMPLEX #180 tabs cholecalciferol (vitamin D3) 50 50 mcg PO DAILY 02/16/22 02/16/22 History mcg (2,000 unit) capsule lisinopril 20 1 tablet PO BID 02/16/22 02/16/22 History mg-hydrochlorothiazide 12.5 mg tablet Allergies Allergy/AdvReac Type Severity Reaction Status Date / Time No Known Allergies Allergy Verified 01/26/22 14:32 Vital Signs Vital Signs - 24 hr 02/17/22 16:00 02/17/22 20:00 02/17/22 22:00 Temperature 36.6
[2022-02-18] MEDS: INSULIN HUMAN NPH (*BKC) 100 UNITS/ML 8 UNITS SUB-Q (17:07)
[2022-02-18 17:10] LABS: Glucose Point of Care 243 mg/dl (65-105)
[2022-02-18 22:12] LABS: Glucose Point of Care 341 mg/dl (65-105)
[2022-02-19] VITALS (10 sets, daily range): BP systolic 120–150; BP diastolic 56–67; PULSE 56–86; RESP 18–22; TEMP 36.5–36.6; O2SAT 97–99
[2022-02-19 08:11] LABS: Glucose Point of Care 161 mg/dl (65-105)
[2022-02-19] MEDS: CHOLECALCIFEROL 1,000 UNITS TABLET 2000 UNITS PO (09:12)
[2022-02-19] MEDS: methiMAzole 5 MG TAB BY MOUTH (09:12)
[2022-02-19] MEDS: hydroCHLOROthiazide 12.5 MG CAPSULE PO ×2 (09:12→21:06)
[2022-02-19] MEDS: POTASSIUM CHLORIDE 10 MEQ TABLET.ER BY MOUTH ×2 (09:12→16:25)
[2022-02-19] MEDS: APIXABAN 5 MG TABLET 10 MG PO ×2 (09:13→21:06)
[2022-02-19] MEDS: lisinopriL 20 MG TABLET PO ×2 (09:13→21:06)
[2022-02-19 12:05] LABS: Glucose Point of Care 185 mg/dl (65-105)
--- NOTE | 2022-02-19 12:41 | PM.DS ---
DS: Admitting Diagnosis Discharge Date February 19, 2022 Admitting Diagnosis Bilateral PE DS: Discharge Diagnosis Discharge Diagnosis (1) Pulmonary emboli: Code(s): I26.99 - Other pulmonary embolism without acute cor pulmonale Status: Acute Assessment and Plan: -the patient is on subcu Lovenox today. -may consider transitioning to Xarelto or Eliquis tomorrow depending on what her insurance will cover. -the patient is not in any distress and is on room air. -check venous Dopplers -an echo has been ordered as well --the patient has a sedentary lifestyle. -she has not had any recent injuries or surgeries or travel.. (2) Hyperthyroidism: Code(s): E05.90 - Thyrotoxicosis, unspecified without thyrotoxic crisis or storm Status: Acute Assessment and Plan: -as the patient about her Tapazole and she stated that her doctor was supposed to reorder her this medication but she has not received it. -I will check her thyroid level. (3) Type 2 diabetes mellitus with hyperglycemia, with long-term current use of insulin: Code(s): E11.65 - Type 2 diabetes mellitus with hyperglycemia; Z79.4 - watermelon inspector (current) use of insulin Status: Acute Assessment and Plan: -sliding scale insulin with Accu-Cheks AC and HS and hypoglycemic protocol -her A1c was 8.0 on 10/28/2021. Hold NPH while on sliding scale and (4) HTN (hypertension): Qualifiers: Hypertension type: essential hypertension Qualified Code(s): I10 - Essential (primary) hypertension Code(s): I10 - Essential (primary) hypertension Status: Acute Assessment and Plan: -p.r.n. hydralazine with parameters -the patient is on lisinopril with hydrochlorothiazide at home and it is non formulary here. Perhaps we can just give however the lisinopril. -will need to continue with her supplemental potassium as her potassium was slightly low. DS: Summary Hospital Course Hospital Course: Patient was admitted for bilateral pulmonary embolism. Her vital signs have been stable otherwise she has been medically stable. She does have some dizziness. I did ask Neurology to see the patient and they recommended outpatient follow-up with evaluation for peripheral neuropathy. Physical therapy did see the patient she was able to walk without any shortness of breath and not requiring any oxygen she was able to walk [id number]. He is minimally assisted and did require have any episodes of falling her excessive dizziness or vertigo. I offered the patient to go to a skilled facility and she refused and said she wants to go home. Her sister is present and is able to help her and assist her at home. Otherwise prescription for blood thinners were given to the patient and she has no questions regarding this new medication. Time Spent with Patient Time attestation: Total time spent providing and/or coordinating discharge services: Exam Const: General: cooperative, healthy appearing, comfortable, no acute distress, well developed, awake, Physically active, average body habitus and well nourished Nutritional Appearance: average body habitus and well nourished Orientation/consciousness: oriented to person, oriented to place, oriented to time and patient oriented x3 Limitations: no limitations HENMT: Head: normal to inspection, No palpable skull fracture present, normocephalic and atraumatic Ears: hearing grossly normal bilaterally and external ears normal Face/Nose/Sinus: Normal external nose present and Normal nares present Eyes: General: appearance normal, both eyes and all related structures Alignment and Position: alignment normal Periorbital: periorbital findings normal Eyelids: eyelids normal Sclera: sclerae normal Pupils: Equal, round and reactive pupils present EOM: EOMs intact bilaterally Neck: Neck: normal visual inspection, full ROM, no lymphadenopathy, trachea midline and supple Chest: Chest palpation & inspection: normal insp
[2022-02-19 17:08] LABS: Glucose Point of Care 180 mg/dl (65-105)
[2022-02-19] MEDS: INSULIN HUMAN NPH (*BKC) 100 UNITS/ML 8 UNITS SUB-Q (17:29)
[2022-02-19 21:19] LABS: Glucose Point of Care 209 mg/dl (65-105)
[2022-02-20] VITALS: PULSE 116
[2022-02-20 04:00] VITALS: PULSE 56
[2022-02-20 06:00] VITALS: BP 144/67; PULSE 80; RESP 17; TEMP 36.9; O2SAT 100
[2022-02-20 08:24] LABS: Glucose Point of Care 164 mg/dl (65-105)
[2022-02-20] MEDS: POTASSIUM CHLORIDE 10 MEQ TABLET.ER BY MOUTH (08:44)
[2022-02-20] MEDS: APIXABAN 5 MG TABLET 10 MG PO (08:44)
[2022-02-20] MEDS: CHOLECALCIFEROL 1,000 UNITS TABLET 2000 UNITS PO (08:44)
[2022-02-20] MEDS: methiMAzole 5 MG TAB BY MOUTH (08:44)
[2022-02-20] MEDS: lisinopriL 20 MG TABLET PO (08:44)
[2022-02-20] MEDS: hydroCHLOROthiazide 12.5 MG CAPSULE PO (08:44)
[2022-02-20 09:00] VITALS: PULSE 68
--- NOTE | 2022-02-20 11:16 | PM.DS ---
DS: Admitting Diagnosis Discharge Date February 20, 2022 Admitting Diagnosis PE DS: Discharge Diagnosis Discharge Diagnosis (1) Pulmonary emboli: Code(s): I26.99 - Other pulmonary embolism without acute cor pulmonale Status: Acute Assessment and Plan: -the patient is on subcu Lovenox today. -may consider transitioning to Xarelto or Eliquis tomorrow depending on what her insurance will cover. -the patient is not in any distress and is on room air. -check venous Dopplers -an echo has been ordered as well --the patient has a sedentary lifestyle. -she has not had any recent injuries or surgeries or travel.. (2) Hyperthyroidism: Code(s): E05.90 - Thyrotoxicosis, unspecified without thyrotoxic crisis or storm Status: Acute Assessment and Plan: -as the patient about her Tapazole and she stated that her doctor was supposed to reorder her this medication but she has not received it. -I will check her thyroid level. (3) Type 2 diabetes mellitus with hyperglycemia, with long-term current use of insulin: Code(s): E11.65 - Type 2 diabetes mellitus with hyperglycemia; Z79.4 - [facility] (current) use of insulin Status: Acute Assessment and Plan: -sliding scale insulin with Accu-Cheks AC and HS and hypoglycemic protocol -her A1c was 8.0 on 10/28/2021. Hold NPH while on sliding scale and (4) HTN (hypertension): Qualifiers: Hypertension type: essential hypertension Qualified Code(s): I10 - Essential (primary) hypertension Code(s): I10 - Essential (primary) hypertension Status: Acute Assessment and Plan: -p.r.n. hydralazine with parameters -the patient is on lisinopril with hydrochlorothiazide at home and it is non formulary here. Perhaps we can just give however the lisinopril. -will need to continue with her supplemental potassium as her potassium was slightly low. DS: Summary Hospital Course Hospital Course: Admitted for PE will be sent home on Eliquis. To note patient did have some dizziness and Neurology was consulted recommended outpatient follow-up. Patient will need follow-up with Neurology. Otherwise patient be sent to custodial facility. Time Spent with Patient Time attestation: Total time spent providing and/or coordinating discharge services: Exam Const: General: cooperative, healthy appearing, comfortable, no acute distress, well developed, awake, Physically active, average body habitus and well nourished Nutritional Appearance: average body habitus and well nourished Orientation/consciousness: oriented to person, oriented to place, oriented to time and patient oriented x3 Limitations: no limitations HENMT: Head: normal to inspection, No palpable skull fracture present, normocephalic and atraumatic Ears: hearing grossly normal bilaterally and external ears normal Face/Nose/Sinus: Normal external nose present and Normal nares present Eyes: General: appearance normal, both eyes and all related structures Alignment and Position: alignment normal Periorbital: periorbital findings normal Eyelids: eyelids normal Sclera: sclerae normal Pupils: Equal, round and reactive pupils present EOM: EOMs intact bilaterally Neck: Neck: normal visual inspection, full ROM, no lymphadenopathy, trachea midline and supple Chest: Chest palpation & inspection: normal inspection of the chest Resp: Effort & Inspection: normal respiratory effort Auscultation: clear to auscultation bilaterally Cardio: Palpation: normal PMI Rate: regular rate Rhythm: regular rhythm Heart sounds: S1 normal heart sound present and S2 normal heart sound present Peripheral pulses: Peripheral pulses 2+ throughout GI: Inspection: normal to inspection Auscultation: normal bowel sounds Rectal Exam: deferred : General: Yes no CVA tenderness Back/Spine/Pelvis: Back: no CVA tenderness Cervical Spine: cervical ROM normal Thoracic/Lumbar Spine: thoracic and lumbar spine norm
[2022-02-20 12:00] VITALS: PULSE 98
--- NOTE | 2022-02-20 12:06 | PC.NURSE ---
this nurse went to talk to family about discharge due to order put in. family at bedside and stated that the pt did not get the testing that they were told she would get. this nurse asked what testing. family member sister stated a tilt table test. call placed to provider Richie to talk to pts family in regards to test. richie spoke to family. this nurse called Dr. Echavarria to make sure pt could be discharged from his standpoint. provider stated yes , she is there for pulmonary emboli, and provider stated that the pt stated to him that she gets dizzy when standing up. Dr. Echavarria stated he is in [place] today and is heading to this hospital which would be around [address] here and said he would come talk to the pt if they wanted to wait. family and pt notified.
[2022-02-20 12:31] LABS: Glucose Point of Care 290 mg/dl (65-105)
[2022-02-20] MEDS: INSULIN ASPART (*BKC) 100 UNITS/ML SUB-Q (12:45)
[2022-02-20 13:30] LABS: EDCOVIDSCREEN Negative (Negative)
== END 2022-02-20 14:15 | DRG 176 ==
LOC: ANHED 10:17 → ANH3MEDSUR 14:03
PROVIDERS: Nurse Practitioner; Admitting Provider Internal Medicine; Emergency Provider General Practice; PCP Emergency Medicine; Visit Provider Chiropractor
DX: I26.99 Other pulmonary embolism without acute cor pulmonale (principal); E05.90 Thyrotoxicosis, unspecified without thyrotoxic crisis or storm; E11.65 Type 2 diabetes mellitus with hyperglycemia; I10 Essential (primary) hypertension; Z20.822 Contact with and (suspected) exposure to COVID-19; K21.9 Gastro-esophageal reflux disease without esophagitis; M17.0 Bilateral primary osteoarthritis of knee; E55.9 Vitamin D deficiency, unspecified; Z79.4 Long term (current) use of insulin; Z87.891 Personal history of nicotine dependence
CPT/HCPCS: 36415; 71046; 71275; 80053; 82948; 83690; 83735; 84439; 84443; 84480; 84484; 85025; 85380; 85610; 85730; 87426; 87636; 93005; 93306; 93970; 96360; 96372; 97161; 97165; 99291; A9270; C9803; G0378; J1650; J1815; J7030; Q9967

== ENCOUNTER 2022-05-27 09:57 | Outpatient (CLI) | payer MEDICARE, SELFPAY ==
[2022-05-27 10:32] LABS: Hemoglobin A1C 6.5 % (<5.7)
[2022-05-27 10:36] LABS: Alanine Aminotransferase 23 U/L (6-35); Alkaline Phosphatase 81 U/L (38-126); Anion Gap 5 mmol/L (8-16); Aspartate Amino Transferase 31 U/L (14-36); Bilirubin,Total 0.5 mg/dL (0.2-1.3); Blood Urea Nitrogen 20 mg/dL (7-17); Calcium 9.4 mg/dL (8.4-10.2); Carbon Dioxide 33 mmol/L (22-30); Chloride 101 mmol/L (98-107); Cholesterol 209 mg/dL (0-200); Estimated Glomerular Filt Rate 57; Glucose 129 mg/dL (65-110); HDL Direct 51 mg/dL; Potassium 4.3 mmol/L (3.4-5.0); Sodium 139 mmol/L (137-145); Triglycerides 69 mg/dL (<150)
[2022-05-27 10:47] LABS: LDL Cholesterol Direct 98 mg/dL
[2022-05-27 11:06] LABS: Thyroid Stimulating Hormone 0.706 uIU/mL (0.465-4.680)
== END 2022-05-27 09:58 | disposition home or self-care (01) ==
LOC: ANHLAB 09:59
PROVIDERS: PCP Emergency Medicine; Visit Provider Emergency Medicine
DX: E11.9 Type 2 diabetes mellitus without complications (principal); I10 Essential (primary) hypertension; E03.9 Hypothyroidism, unspecified
CPT/HCPCS: 36415; 80053; 80061; 83036; 84443

== ENCOUNTER 2022-07-13 09:46 | Outpatient (CLI) | payer MEDICARE, SELFPAY ==
--- NOTE | ~2022-07-13 | MM_ITS ---
EXAMINATION: [facility] HISTORY: Screening mammogram TECHNIQUE: Craniocaudal and mediolateral oblique 3-D tomosynthesis images were obtained and synthetic 2-D images were generated. CAD analysis was submitted and interpreted. COMPARISON: 12/05/2018, 11/14/2017, 10/27/2016 BREAST PARENCHYMAL COMPOSITION: The breasts are extremely dense, which lowers the sensitivity of mamm ography. FINDINGS: Scattered benign-appearing calcifications are present. No suspicious mass, calcification, o r architectural distortion are identified in either breast to suggest malignancy. There has been no s uspicious interval change. IMPRESSION: 1. No mammographic evidence of malignancy. 2. Recommend routine screening mammography while the patient remains in good health. BI-RADS Category 2: Benign finding(s). Reviewed, dictated and finalized at location A. IMPRESSION: 1. No mammographic evidence of malignancy. 2. Recommend routine screening mammography while the patient remains in good he alth. BI-RADS Category 2: Benign finding(s).
--- NOTE | ~2022-07-13 | DEXA_ITS ---
Bone Density Report Name: ARASH HOLLOWAY Age: 82 Sex: Female Ethnicity: Black Date of : 1940 Indication: osteopenia; hysterectomy; postmenopausal Referring Provider: KHADRA PATIÑO Study: Bone densitometry was performed. Exam Date: July 13, 2022 Accession number: [id number] Bone Density: Region BMD T-score Z-score Classification AP Spine(L1-L4) 0.966 -0.7 1.5 Normal Femoral Neck (Left) 0.648 -1.8 -0.2 Osteopenia Total Hip (Left) 0.770 -1.4 0.1 Osteopenia Femoral Neck (Right) 0.616 -2.1 -0.4 Osteopenia Total Hip (Right) 0.765 -1.5 0.0 Osteopenia Total Hip Mean 0.767 -1.5 0.1 Osteopenia World Health Organization criteria for BMD impression classify patients as: Normal (T-score at or above -1.0), Osteopenia (T-score between -1.0 and -2.5), or Osteoporosis (T-score at or below -2.5). 10-year Fracture Risk(1): Major Osteoporotic Fracture 7.3% Hip Fracture 2.1% Reported Risk Factors: [place] (Black), Neck BMD=0.616, BMI=30.6 (1) FRAX(R) Version 3.08. Fracture probability calculated for an untreated patient. Fracture probability may be lower if the patient has received treatment. Previous Exams: Region Exam Age BMD T-score BMD Change BMD Change Date g/cm2 vs Baseline vs Previous Total Hip(Left) 07/13/2022 82 0.770 -1.4 0.015 (2.0%) -0.040 (-4.9%) 12/05/2018 78 0.810 -1.1 0.055 (7.3%)* 0.055 (7.3%)* 10/27/2016 76 0.755 -1.5 Total Hip(Right) 07/13/2022 82 0.765 -1.5 0.023 (3.0%) -0.048 (-5.9%) 12/05/2018 78 0.812 -1.1 0.070 (9.5%)* 0.070 (9.5%)* 10/27/2016 76 0.742 -1.6 *Denotes significance at 95% confidence level, LSC for Total Hip = 0.027 g/cm2 Clinical Information Provided by Patient: Has used the following medications: Vitamin D Has the following medical conditions: Hysterectomy Patient maximum height was 65 Menopause Age: 51 No regular weight bearing exercise Does not regularly consume dairy products Onset of menses at age 9 Number of children 0 Impression: The patient has low bone mass, based on the Right Femoral Neck T-score. The patient has an estimated ten-year risk of hip fracture of 2.1% and an estimated ten-year risk of major fracture of 7.3%, based on the WHO FRAX algorithm. The BMD for the Total Hip(Left) decreased, changing by -4.9% since the last DXA exam. The BMD for the Total Hip(Right) decreased, changing by -5.9% since the last DXA exam. Discussion: BONE DENSITY IS LOW AT ONE OR MORE SKELETAL
== END 2022-07-13 09:47 | disposition home or self-care (01) ==
LOC: ANHIMG 09:47
PROVIDERS: PCP Emergency Medicine; Visit Provider Emergency Medicine
DX: Z12.31 Encounter for screening mammogram for malignant neoplasm of breast (principal); Z78.0 Asymptomatic menopausal state; M85.89 Other specified disorders of bone density and structure, multiple sites
CPT/HCPCS: 77063; 77067; 77080

== ENCOUNTER 2022-10-04 09:14 | Outpatient (CLI) | payer MEDICARE, SELFPAY ==
[2022-10-04 09:45] LABS: Hemoglobin A1C 7.1 % (<5.7)
[2022-10-04 09:47] LABS: Sodium 139 mmol/L (137-145)
[2022-10-04 09:57] LABS: Alanine Aminotransferase 30 U/L (6-35); Alkaline Phosphatase 87 U/L (38-126); Anion Gap 5 mmol/L (8-16); Aspartate Amino Transferase 49 U/L (14-36); Bilirubin,Total 0.5 mg/dL (0.2-1.3); Blood Urea Nitrogen 19 mg/dL (7-17); Calcium 9.4 mg/dL (8.4-10.2); Carbon Dioxide 33 mmol/L (22-30); Chloride 101 mmol/L (98-107); Cholesterol 192 mg/dL (0-200); Estimated Glomerular Filt Rate 52; Glucose 155 mg/dL (65-110); HDL Direct 57 mg/dL; Potassium 4.3 mmol/L (3.4-5.0); Triglycerides 86 mg/dL (<150)
[2022-10-04 09:59] LABS: LDL Cholesterol Direct 92 mg/dL
[2022-10-07 23:29] LABS: Vitamin D 1,25 (OH)2 Total 36 pg/mL (18-72); Vitamin D2 1,25 (OH)2 <8 pg/mL; Vitamin D3 1,25 (OH)2 36 pg/mL
== END 2022-10-04 09:15 | disposition home or self-care (01) ==
PROVIDERS: PCP Emergency Medicine; Visit Provider Emergency Medicine
DX: E05.90 Thyrotoxicosis, unspecified without thyrotoxic crisis or storm (principal); E55.9 Vitamin D deficiency, unspecified; E11.9 Type 2 diabetes mellitus without complications
CPT/HCPCS: 36415; 80053; 80061; 82652; 83036; 84443

== ENCOUNTER 2023-02-27 10:33 | Outpatient (CLI) | payer MEDICARE, SELFPAY ==
[2023-02-27 11:19] LABS: Alanine Aminotransferase 18 U/L (6-35); Albumin Level 3.9 g/dL (3.5-5.1); Alkaline Phosphatase 77 U/L (38-126); Anion Gap 5 mmol/L (8-16); Aspartate Amino Transferase 27 U/L (14-36); Bilirubin,Total 0.7 mg/dL (0.2-1.3); Blood Urea Nitrogen 10 mg/dL (7-17); Calcium 9.5 mg/dL (8.4-10.2); Carbon Dioxide 31 mmol/L (22-30); Chloride 104 mmol/L (98-107); Estimated Glomerular Filt Rate > 60; Glucose 139 mg/dL (65-110); Potassium 4.4 mmol/L (3.4-5.0); Sodium 140 mmol/L (137-145)
[2023-02-27 11:28] LABS: Creatinine Urine 72.8 mg/dL
[2023-02-27 11:40] LABS: Hemoglobin A1C 9.3 % (<5.7)
== END 2023-02-27 10:34 | disposition home or self-care (01) ==
PROVIDERS: PCP Emergency Medicine; Visit Provider Emergency Medicine
DX: E11.9 Type 2 diabetes mellitus without complications (principal)
CPT/HCPCS: 36415; 80053; 82043; 83036

== ENCOUNTER 2023-07-04 08:55 | Outpatient (CLI) | payer MEDICARE, SELFPAY ==
[2023-07-04 09:41] LABS: Alanine Aminotransferase 25 U/L (6-35); Albumin Level 3.9 g/dL (3.5-5.1); Alkaline Phosphatase 73 U/L (38-126); Anion Gap 3 mmol/L (4-12); Aspartate Amino Transferase 32 U/L (14-36); Bilirubin,Total 0.5 mg/dL (0.2-1.3); Blood Urea Nitrogen 21 mg/dL (7-17); Calcium 9.2 mg/dL (8.4-10.2); Carbon Dioxide 31 mmol/L (22-30); Chloride 105 mmol/L (98-107); Cholesterol 202 mg/dL (0-200); Estimated Glomerular Filt Rate 47; Glucose 96 mg/dL (65-110); HDL Direct 71 mg/dL; Sodium 139 mmol/L (137-145); Triglycerides 60 mg/dL (<150)
[2023-07-04 09:50] LABS: LDL Cholesterol Direct 103 mg/dL
[2023-07-04 10:03] LABS: Creatinine Urine 116.8 mg/dL
[2023-07-04 10:07] LABS: MALB Creatinine Ratio 5.2 mg/g (0-30); Microalbumin Urine Random 6.1 mg/L (0-16.7)
[2023-07-04 12:31] LABS: Hemoglobin A1C 6.5 % (<5.7)
== END 2023-07-04 08:56 | disposition home or self-care (01) ==
LOC: ANHLAB 08:58
PROVIDERS: PCP Emergency Medicine; Visit Provider Emergency Medicine
DX: E11.9 Type 2 diabetes mellitus without complications (principal); E55.9 Vitamin D deficiency, unspecified; E03.9 Hypothyroidism, unspecified
CPT/HCPCS: 36415; 80053; 80061; 82043; 82306; 83036; 84443

== ENCOUNTER 2023-11-02 09:39 | Outpatient (CLI) | payer MEDICARE, SELFPAY ==
[2023-11-02 11:57] LABS: Alanine Aminotransferase 27 U/L (6-35); Albumin Level 4.2 g/dL (3.5-5.1); Alkaline Phosphatase 88 U/L (38-126); Anion Gap 6 mmol/L (4-12); Aspartate Amino Transferase 32 U/L (14-36); Bilirubin,Total 0.3 mg/dL (0.2-1.3); Blood Urea Nitrogen 16 mg/dL (7-17); Calcium 9.7 mg/dL (8.4-10.2); Carbon Dioxide 34 mmol/L (22-30); Chloride 98 mmol/L (98-107); Cholesterol 216 mg/dL (0-200); Estimated Glomerular Filt Rate > 60; Glucose 163 mg/dL (65-110); HDL Direct 68 mg/dL; Potassium 4.5 mmol/L (3.4-5.0); Sodium 138 mmol/L (137-145); Triglycerides 94 mg/dL (<150)
[2023-11-02 12:08] LABS: LDL Cholesterol Direct 108 mg/dL
[2023-11-02 12:26] LABS: Thyroid Stimulating Hormone 0.767 uIU/mL (0.465-4.680)
[2023-11-02 12:31] LABS: Vitamin D 25 Hydroxy 46.2 ng/mL
[2023-11-02 12:42] LABS: Creatinine Urine 115.9 mg/dL
[2023-11-02 12:47] LABS: MALB Creatinine Ratio 10.1 mg/g (0-30); Microalbumin Urine Random 11.7 mg/L (0-16.7)
[2023-11-02 12:52] LABS: Hemoglobin A1C 8.3 % (<5.7)
== END 2023-11-02 09:40 | disposition home or self-care (01) ==
LOC: ANHLAB 09:45
PROVIDERS: PCP Emergency Medicine; Visit Provider Emergency Medicine
DX: E78.5 Hyperlipidemia, unspecified (principal); E11.9 Type 2 diabetes mellitus without complications; E55.9 Vitamin D deficiency, unspecified; E03.9 Hypothyroidism, unspecified
CPT/HCPCS: 36415; 80053; 80061; 82043; 82306; 83036; 84443

== ENCOUNTER 2024-09-20 08:51 | Outpatient (CLI) | payer MEDICARE, SELFPAY ==
--- NOTE | ~2024-09-20 | US_ITS ---
EXAMINATION: US carotid duplex BI DATE: 09/20/2024 14:00 CDT INDICATION: Vertigo TECHNIQUE: Grayscale, color Doppler, and pulsed Doppler images of the cervical carotid arteries were obtained. The degree of vessel stenosis is placed in one of the following categories: normal, <50%, 50-69%, >=7 0% but less than near-occlusion, near-occlusion, or total occlusion. Note that percent stenosis relative to normal distal artery lumen diameter is indirectly measured fro m velocity measurements as described originally by Michael, et al. Radiology 2003; 229:340-346 and upda franco by Harvinder Dominguez et al STROKE 2012;43(3);915-921. COMPARISON: None. FINDINGS: There is mild atherosclerosis of both carotid arteries. Peak systolic velocity (in cm/s) is detailed below RIGHT: Right common carotid artery (CCA): 71 cm/s. Right internal carotid artery (ICA) PSV: 73 cm/s. Right ICA end-diastolic velocity (EDV): 16 cm/s. Right ICA/CCA PSV ratio is 1.0. Right external carotid artery (ECA): 50cm/s. There is antegrade flow in the right vertebral artery LEFT: Left common carotid artery (CCA): 31 cm/s. Left internal carotid artery (ICA) PSV: 116 cm/s. Left ICA end-diastolic velocity (EDV): 24 cm/s. Left ICA/CCA PSV ratio is 2.8. Left external carotid artery (ECA): 53cm/s. There is antegrade flow in the left vertebral artery. IMPRESSION: 1. Less than 50% stenosis in the right internal carotid artery. 2. 50-69% stenosis in the left internal carotid artery. Reviewed, dictated and finalized at location A.
--- NOTE | ~2024-09-20 | MR_ITS ---
EXAMINATION: MR brain/brain stem wo con, MRA brain wo con DATE: 09/20/2024 10:31 INDICATION: Dizziness and dizziness with personal history of other healed physical injury TECHNIQUE: 1. Magnetic resonance imaging (MRI) of the brain and brainstem was performed without intravenous cont rast. Sequences included sagittal and axial T1-weighted SE, axial diffusion-weighted FS SE, axial 3D SWAN, axial T2-weighted FLAIR, and axial T2-weighted FSE. Apparent diffusion coefficient (ADC) maps w ere created. 2. Magnetic resonance angiography (MRA) of the brain was performed without intravenous contrast by smith 3D [id number] technique. COMPARISON: None. FINDINGS: Brain MRI: There are no areas of restricted diffusion to suggest acute infarction. No intracranial hemorrhage or abnormal intracranial mass lesion. There are scattered areas of nonspecific increased T2-weighted si gnal intensity in the cerebral white matter, predominantly involving the deep and periventricular whi te matter. There are numerous foci of susceptibility artifact in the bilateral globus pallidus with c orresponding increased signal on the filter phase images consistent with calcifications, most commonl y age-related. The ventricles are symmetric and normal in size with normal variant cavum septum pellu cidum and vergae. There are no abnormal extra-axial fluid collections. Flow voids are seen in the cer ebral arteries on the T2-weighted sequences consistent with their expected patency. Mucosal thickenin g the bilateral ethmoid sinuses with some mucous filling the posterior most bilateral ethmoid air devante ls Changes of bilateral intraocular lens replacement. Visualized orbits and soft tissues are unremar kable. Head MRA: There is no hemodynamically significant stenosis in the vertebral, basilar and internal carotid arter ies. Vertebral arteries are codominant. There are no aneurysms identified. The left A1 and bilateral P1 segments are patent. The right anterior cerebral artery supplied by the left internal carotid jose antonio ry and a patent anterior communicating artery. Cerebral arterial arborization appears symmetric. IMPRESSION: 1. Mild to moderate scattered periventricular predominant calcific white matter T2 hyperintensity whi ch within normal limits for age and likely sequela of chronic small vessel ischemic disease. No acute intracranial process. 2. Susceptibility artifact consistent with calcifications at the bilateral globus pallidus which is m ost commonly age-related but can also be seen in setting of toxic insults, metabolic disorders or seq uela of some chronic infections. 3. Normal variation of the tor[place] of [place] with left internal carotid artery supplying the right ant erior cerebral artery via a patent anterior communicating artery with absent right A1 segment. No hem atoma significant stenosis or aneurysm. Reviewed, dictated and finalized at location A. IMPRESSION: 1. Mild to moderate scattered periventricular predominant calcific white matter T2 hyperintensity which within normal limits for age and likely sequela of chr onic small vessel ischemic disease. No acute intracranial process. 2. Susceptibility artifact consistent with calcifications at the bilateral glob us pallidus which is most commonly age-related but can also be seen in setting of toxic insults, metabolic disorders or sequela of some chronic infections. 3. Normal variation of the tor[place] martinez of [place] with left internal carotid artery s upplying the right anterior cerebral artery via a patent anterior communicating artery with absent right A1 segment. No hematoma significant stenosis or aneur ysm.
== END 2024-09-20 08:52 | disposition home or self-care (01) ==
PROVIDERS: PCP Emergency Medicine; Visit Provider Psychiatry & Neurology Neurology
DX: I77.9 Disorder of arteries and arterioles, unspecified (principal); R42 Dizziness and giddiness; E11.9 Type 2 diabetes mellitus without complications; E03.9 Hypothyroidism, unspecified; E55.9 Vitamin D deficiency, unspecified; Z87.828 Personal history of other (healed) physical injury and trauma
CPT/HCPCS: 70544; 70551; 93880

== ENCOUNTER 2025-01-24 10:05 | Outpatient (CLI) | payer MEDICARE, SELFPAY ==
[2025-01-24 11:26] LABS: Hemoglobin A1C 9.6 % (<5.7)
[2025-01-24 11:27] LABS: Alanine Aminotransferase 28 U/L (6-35); Albumin Level 4.6 g/dL (3.5-5.1); Alkaline Phosphatase 79 U/L (38-126); Anion Gap 5 mmol/L (4-12); Aspartate Amino Transferase 39 U/L (14-36); Bilirubin,Total 0.5 mg/dL (0.2-1.3); Blood Urea Nitrogen 15 mg/dL (7-17); Calcium 10.1 mg/dL (8.4-10.2); Carbon Dioxide 31 mmol/L (22-30); Chloride 101 mmol/L (98-107); Cholesterol 237 mg/dL (0-200); Estimated Glomerular Filt Rate 58; Glucose 147 mg/dL (65-110); HDL Direct 77 mg/dL; Potassium 4.5 mmol/L (3.4-5.0); Sodium 137 mmol/L (137-145); Total Protein 8.6 g/dL (6.3-8.2); Triglycerides 86 mg/dL (<150)
[2025-01-24 11:37] LABS: MALB Creatinine Ratio 33.7 mg/g (0-30)
[2025-01-24 12:02] LABS: Thyroid Stimulating Hormone 0.881 uIU/mL (0.465-4.680)
== END 2025-01-24 10:06 | disposition home or self-care (01) ==
PROVIDERS: PCP Emergency Medicine; Visit Provider Emergency Medicine
DX: E55.9 Vitamin D deficiency, unspecified (principal); E03.9 Hypothyroidism, unspecified; E11.9 Type 2 diabetes mellitus without complications; E78.5 Hyperlipidemia, unspecified
CPT/HCPCS: 36415; 80053; 80061; 82043; 82306; 83036; 84443